=== PATIENT | male | born 1955 | race Caucasian/White ===

== ENCOUNTER 2017-04-28 12:04 | Emergency (ER) | payer MEDICAID ==
[~2017-04-28] VITALS: Ht 180.3 cm; Wt 85.0 kg
[2017-04-28 12:05] VITALS: BP 110/72
[2017-04-28] MEDS ORDERED: NAPR-1176 PO (12:09)
[2017-04-28] MEDS ORDERED: NAPROXEN 500MG TABLET PO ONE (12:45)
== END 2017-04-28 13:11 | disposition home or self-care (01) ==
LOC: ER 12:17
DX: M54.5 Low back pain (principal); G89.29 Other chronic pain; Z98.890 Other specified postprocedural states; Z88.6 Allergy status to analgesic agent
CPT/HCPCS: 99283

== ENCOUNTER 2019-02-18 03:00 | Emergency (ER) | payer MEDICAID, OTHER ==
[~2019-02-18] VITALS: Ht 177.8 cm; Wt 73.0 kg
[~2019-02-18 03:00] MED LIST: NAPR-1176 PO
[2019-02-18] MEDS ORDERED: NAPROXEN 375MG TABLET PO ONE (04:30)
[2019-02-18 06:49] VITALS: BP 115/72
== END 2019-02-18 06:51 | disposition home or self-care (01) ==
LOC: ER 03:00
DX: S46.811A Strain of other muscles, fascia and tendons at shoulder and upper arm level, right arm, initial encounter (principal); M54.5 Low back pain; W18.39XA Other fall on same level, initial encounter; Y93.89 Activity, other specified; Y92.89 Other specified places as the place of occurrence of the external cause; Y99.8 Other external cause status; Z88.6 Allergy status to analgesic agent
CPT/HCPCS: 72110; 72170; 73030; 99284

== ENCOUNTER 2019-12-02 05:35 | Inpatient (IN) | payer MEDICAID ==
[~2019-12-02] VITALS: Ht 177.8 cm; Wt 72.1 kg
[2019-12-02] MEDS ORDERED: MORPHINE SULFATE 4 MG/ML CPJ (NOT FOR IM USE) IV STA (06:32)
[2019-12-02 07:07] LABS: BASOPHILS % 0.8 % (0.0-2.0); EOSINOPHILS % 0.4 % (0.0-5.0); HEMATOCRIT. 36.5 % (42.0-52.0); HEMOGLOBIN. 12.3 g/dL (14.0-18.0); LYMPHOCYTES % 17.7 % (20.0-50.0); MEAN CORPUSCULAR HEMOGLOBIN 33.6 pg (28.0-32.0); MEAN CORPUSCULAR VOLUME 99.5 fL (80.0-94.0); MEAN PLATELET VOLUME 7.1 fl (7.4-10.4); MONOCYTES % 9.7 % (2.0-8.0); NEUTROPHILS % 71.4 % (40.0-76.0); PLATELET 296 x1000/uL (130-400); RED BLOOD CELL COUNT 3.67 mill/uL (4.7-6.1); RED CELL DISTRIBUTION WIDTH 13.6 % (11.6-14.6)
[2019-12-02 07:10] LABS: CHLORIDE 101 mEq/L (98-107)
[2019-12-02] MEDS ORDERED: ASPIRIN 325MG EC TABLET PO ONE (07:45)
[2019-12-02] MEDS: MORPHINE SULFATE 2 MG/ML CPJ (NOT FOR IM USE) IV PRN ×2 (15:12→22:18)
[2019-12-02] MEDS ORDERED: NITROGLYCERIN 0.4MG TABLET SL SL PRN (15:15)
[2019-12-02] MEDS ORDERED: IPRATROPIUM/ALBUTEROL 0.5-3(2.5)MG/3ML NEB HHN PRN (15:15)
[2019-12-02] MEDS ORDERED: LORAZEPAM 0.5MG TABLET PO PRN (15:15)
[2019-12-02] MEDS ORDERED: ACETAMINOPHEN 325MG TABLET PO PRN (15:15)
[2019-12-02] MEDS ORDERED: ONDANSETRON HCL 4MG/2ML INJ IV PRN (15:15)
[2019-12-02] MEDS ORDERED: CLONIDINE 0.1MG TABLET PO PRN (15:15)
[2019-12-02] MEDS ORDERED: SUCRALFATE 1G TABLET PO NR (18:15)
[2019-12-02 18:31] LABS: LDL CHOLESTEROL 87 mg/dL (5-100)
[2019-12-02 18:32] LABS: HDL CHOLESTEROL 73 mg/dL (40-59)
[2019-12-02] MEDS: PANTOPRAZOLE 40MG DR TABLET PO SCH (18:33)
[2019-12-02 20:30] VITALS: BP 128/80
[2019-12-02 21:07] VITALS: BP 128/80
[2019-12-02] MEDS: GUAIFENESIN 200MG/10ML SUGAR FREE UDC PO PRN (22:17)
[2019-12-02] MEDS: SUCRALFATE 1G TABLET PO SCH (22:18)
[2019-12-02 23:22] LABS: METHADONE URINE SCREEN NEGATIVE (NEGATIVE)
[2019-12-02 23:23] LABS: *AMPHETAMINES SCREEN URINE NEGATIVE (NEGATIVE); *BARBITURATES SCREEN URINE NEGATIVE (NEGATIVE); CANNABINOID URINE SCREEN NEGATIVE (NEGATIVE); OPIATES URINE SCREEN PRESUMTIVE POSITIVE (NEGATIVE); PHENCYCLIDINE URINE SCREEN NEGATIVE (NEGATIVE)
[2019-12-02 23:24] LABS: *BENZODIAZEPINES SCREEN URINE NEGATIVE (NEGATIVE); *COCAINE SCREEN URINE PRESUMTIVE POSITIVE (NEGATIVE)
[2019-12-03] VITALS: BP 120/82
[2019-12-03 04:00] VITALS: BP 118/78
[2019-12-03] MEDS: PANTOPRAZOLE 40MG DR TABLET PO SCH (05:00)
[2019-12-03] MEDS: SUCRALFATE 1G TABLET PO SCH ×4 (05:00→20:34)
[2019-12-03 07:40] LABS: BASOPHILS % 0.4 % (0.0-2.0); EOSINOPHILS % 0.8 % (0.0-5.0); HEMATOCRIT. 40.2 % (42.0-52.0); HEMOGLOBIN. 13.5 g/dL (14.0-18.0); MEAN CORPUSCULAR HEMOGLOBIN 33.6 pg (28.0-32.0); MEAN CORPUSCULAR VOLUME 100.2 fL (80.0-94.0); MEAN PLATELET VOLUME 7.2 fl (7.4-10.4); MONOCYTES % 10.3 % (2.0-8.0); NEUTROPHILS % 66.5 % (40.0-76.0); PLATELET 337 x1000/uL (130-400); RED BLOOD CELL COUNT 4.01 mill/uL (4.7-6.1); RED CELL DISTRIBUTION WIDTH 13.9 % (11.6-14.6)
[2019-12-03 07:47] LABS: CHLORIDE 104 mEq/L (98-107)
[2019-12-03 08:00] VITALS: BP 122/75
[2019-12-03] MEDS: GUAIFENESIN 200MG/10ML SUGAR FREE UDC PO PRN ×2 (11:18→16:50)
[2019-12-03] MEDS: MORPHINE SULFATE 2 MG/ML CPJ (NOT FOR IM USE) IV PRN (11:18)
[2019-12-03 12:00] VITALS: BP 97/55
[2019-12-03 16:00] VITALS: BP 115/75
[2019-12-03] MEDS: HYDROCODONE/ACETAMINOPHEN 5/325MG TABLET PO PRN ×2 (16:50→20:52)
[2019-12-03 20:00] VITALS: BP 119/75
[2019-12-04] MEDS: HYDROCODONE/ACETAMINOPHEN 5/325MG TABLET PO PRN ×2 (05:46→09:49)
[2019-12-04] MEDS: GUAIFENESIN 200MG/10ML SUGAR FREE UDC PO PRN ×2 (05:56→11:09)
[2019-12-04] MEDS: SUCRALFATE 1G TABLET PO SCH ×2 (05:56→13:52)
[2019-12-04] MEDS: PANTOPRAZOLE 40MG DR TABLET PO SCH (05:56)
[2019-12-04 08:00] VITALS: BP 113/70
[2019-12-04 08:01] LABS: BASOPHILS % 0.5 % (0.0-2.0); EOSINOPHILS % 1.4 % (0.0-5.0); HEMOGLOBIN. 13.8 g/dL (14.0-18.0); LYMPHOCYTES % 24.9 % (20.0-50.0); MEAN CORPUSCULAR HEMOGLOBIN 33.8 pg (28.0-32.0); MEAN CORPUSCULAR VOLUME 100.2 fL (80.0-94.0); MEAN PLATELET VOLUME 7.1 fl (7.4-10.4); NEUTROPHILS % 60.2 % (40.0-76.0); PLATELET 309 x1000/uL (130-400); RED CELL DISTRIBUTION WIDTH 13.5 % (11.6-14.6)
[2019-12-04 08:20] LABS: CHLORIDE 102 mEq/L (98-107)
[2019-12-04 08:24] LABS: FOLIC ACID (FOLATE) SERUM 19.2 ng/mL (>5.38)
[2019-12-04] MEDS: MORPHINE SULFATE 2 MG/ML CPJ (NOT FOR IM USE) IV PRN ×2 (11:12→14:45)
[2019-12-04 12:00] VITALS: BP 108/71
[2019-12-04] MEDS ORDERED: LORATADINE (15:36)
[2019-12-04 15:51] VITALS: BP 105/76
== END 2019-12-04 16:40 | disposition home or self-care (01) | DRG 203 ==
LOC: ER 05:35 → 5WST 08:24 → ENRESERV 18:35
PROVIDERS: ADMIT Internal Medicine; ATTEND Internal Medicine
DX: M94.0 Chondrocostal junction syndrome [Tietze] (principal); E87.1 Hypo-osmolality and hyponatremia; D53.9 Nutritional anemia, unspecified; K29.70 Gastritis, unspecified, without bleeding; F14.10 Cocaine abuse, uncomplicated; D72.821 Monocytosis (symptomatic); R74.0 Nonspecific elevation of levels of transaminase and lactic acid dehydrogenase [LDH]; Z87.891 Personal history of nicotine dependence
CPT/HCPCS: 36415; 71045; 80048; 80053; 80061; 80305; 82607; 82746; 83036; 83880; 84484; 85025; 93005; 93306; 99285; J2270